=== PATIENT | male | born 1960 | race Caucasian/White ===

== ENCOUNTER → 2023-11-26 11:54 | Outpatient (REF) | payer BC, SELFPAY ==
[2023-11-26 13:42] LABS: NT-proBNP < 20.0 pg/ml
== END ==
LOC: REG 11:54
PROVIDERS: ATTENDING PHYSICIAN Internal Medicine Gastroenterology; FAMILY PHYSICIAN Internal Medicine Cardiovascular Disease
DX: Z01.818 Encounter for other preprocedural examination (principal)
CPT/HCPCS: 36415; 83880

== ENCOUNTER → 2023-12-03 15:17 | Outpatient (REF) | payer BC, SELFPAY ==
[2023-12-03 17:08] LABS: ALT (SGPT) 18 U/L (0-50); AST (SGOT) 23 U/L (17-59); Albumin 4.8 g/dl (3.5-5.0); Alkaline Phosphatase 56 U/L (38-126); Blood Urea Nitrogen 17 mg/dl (9-20); Calcium 9.5 mg/dl (8.4-10.2); Carbon Dioxide 32 mmol/L (22-30); Chloride 99 mmol/L (98-107); Glucose 99 mg/dl (70-99); Sodium 141 mmol/L (135-145); Total Bilirubin 0.5 mg/dl (0.2-1.3); Total Protein 7.9 g/dl (6.3-8.2); eGFR > 60.00
== END ==
LOC: RAD 15:17
PROVIDERS: ATTENDING PHYSICIAN Internal Medicine Gastroenterology; FAMILY PHYSICIAN Internal Medicine Cardiovascular Disease; REFERRING PHYSICIAN Radiology Diagnostic Radiology
DX: R93.3 Abnormal findings on diagnostic imaging of other parts of digestive tract (principal); K85.90 Acute pancreatitis without necrosis or infection, unspecified
CPT/HCPCS: 36415; 74177; 80053; Q9967

== ENCOUNTER 2024-03-16 01:15 | Emergency (ER) | payer BC, SELFPAY ==
[2024-03-16 01:15] VITALS: BMI 26.5
[2024-03-16 01:17] VITALS: BP 130/96
--- NOTE | 2024-03-16 01:45 | ED.SKININJ ---
HPI-Injury
General
Chief Complaint: Skin Surface Trauma
Source: patient
Time Seen by Provider: 03/16/24 01:20
Nursing documentation reviewed up to this point in time: agreed with
History of Present Illness-Injury
Is this injury a work related problem?: No
Is pt an associate of [facility]?: No
Initial Injury comments:
63 y/o M presenting for evaluation of L great toenail injury. Pt notes that he was removing his sock and 'ripped up' his toenail. He endorses pain and bleeding at the time of the injury. Pt reports that he washed the area with soap and water.
Bleeding has since resolved. Pt continues to endorse toenail pain.
Review of Systems
Review of Systems
Allergies reviewed?: Yes
Constitutional: Reports no symptoms
EENT: Reports no symptoms
Respiratory: Reports no symptoms
Cardiac: Reports no symptoms
ABD/GI: Reports no symptoms
: Reports no symptoms
Musculoskeletal: Reports no symptoms
Skin: Reports other (L great toenail bleeding and pain )
Neurological: Reports no symptoms
Endocrine: Reports no symptoms
Hematologic/Lymphatic: Reports no symptoms
Psychiatric: Reports no symptoms
Phy Exam
General Physical Exam
General Presentation: well appearing
General age: appears stated age
General Skin: other (dried blood under L great toenail )
General Habitus: normal
General Mental: alert
General Hydration: appears well hydrated
Cardiovascular Exam
Cardiovascular Exam: regular rate/rhythm
Pulmonary Exam
Pulmonary Exam: lungs clear and no respiratory distress
Skin Exam
Skin Exam: erythema and other (dried blood under L great toenail )
Course
Orders/Labs/Results
Orders:
Orders
03/16/24 01:53
Tetanus/Diphth/Acelpertussis [Adacel] 0.5 ml IM .ONCE ONE
Vital Signs
Initial and Last Documented VS:
Initial Vital Signs
Temp Pulse Resp BP Pulse Ox
98.1 F 80 22 130/96 97
03/16/24 01:17 03/16/24 01:17 03/16/24 01:03/16/24 01:03/16/24 01:17
Last Documented Vital Signs
Temp Pulse Resp BP Pulse Ox
98.1 F 80 22 130/96 97
03/16/24 01:17 03/16/24 01:17 03/16/24 01:03/16/24 01:03/16/24 01:17
MDM/Problems Addressed
Differential Diagnosis Includes:
L great toenail avulsion
MDM/Problems Addressed:
Tetanus/Diphth/Acelpertussis [Adacel] 0.5 ml IM
Dressing applied to toenail
*Critical Care Note
Total Time (30-74mins, 75-104mins- exclusive of procedures): Not Applicable
Update Note
Update Note:
03/16/2024 0209 AM patient resting comfortably. Received tetanus shot.
ED Attending Note
ED Attending Note
Patient seen and examined by attending physician: Yes
I performed the substantive portion of visit, reviewed & personally made and approve the management plan that is documented in note by myself or EDUARDO.: Yes
ED Attending Note:
Pleasant 63-year-old male who presents with left great toenail avulsion. He was taking off his socks when the toenail lifted up. He was bleeding but that has stopped. The toenail is partially avulsed. He denies any other injury. Patient was
seen in conjunction with the PA student. I have reviewed and agree with the history and treatment plan presented. On my independent physical exam, patient is awake, alert, and oriented x3 minimal acute distress. Toenail is stable. There is some
discoloration under the nail. Patient states that he is being treated for a fungal infection under the nail. Patient was seen in conjunction with the PA student. I have reviewed and agree with the history and treatment plan presented. On my
independent physical exam, patient is awake, alert, and oriented x3, no acute distress. No respiratory distress.
Plan: The nail was bandaged down. Patient received a tetanus shot. He will leave the toenail on as a guard for as long as he can.
-
Portions of this chart may have been created with voice recognition software.� Occasional wrong word or��sound alike� substitutions may have occurred due to the inherent limitations of voice recognition software.
Discharge Plan
Departure
Patient Disposition: Home (Routine Discharge)
Date of Disposition: 03/16/24
Time of Disposition: 02:11
Patient with high blood pressure during this ER visit?: Yes
Discharge Problem:
Avulsed toenail
Instructions: Wound Care (DC), Toe Injury (DC), Bruising Under the Nail, BLOOD PRESSURE
Referrals:
[facility] [Outside]
[facility] [Outside]
Activity Restrictions/Additional Instructions:
It was a pleasure meeting you and taking part in your care. We hope for your continued healing and wellness.
Please read discharge instructions in their entirety. However, they are for general education and may not describe your exact diagnosis at discharge. Information on your ER visit and medical conditions were discussed with you along with appropriate
follow up information...
If indicated, please take your medications as instructed and indicated on discharge paperwork.
Please schedule a follow up appointment as directed. Call to schedule an appointment
Please return to the emergency department with ANY change in, persisting, or worsening of symptoms. If any of your symptoms do not improve, or persist, or become more severe within 6-12 hours, please return to the emergency department for further
care.
Please return to the emergency department if you develop a headache, neck pain/stiffness, fever greater than 100.4F, chest pain, shortness of breath, persistent nausea, vomiting, slurred speech, difficulty walking, numbness/tingling, weakness, signs
of infection or any other symptoms that are worrisome to you.
If you have any questions or concerns please do not hesitate to call the Hospital at or E-mail me directly at [email or web address]
Interventions
Interventions:
*Risk Screen - Suicide Last Done: 03/16/24 01:17
*General Assessment Last Done: 03/16/24 02:09
*Neglect/Abuse Screening Last Done: 03/16/24 01:17
ED- Fall Risk Assessment Last Done: 03/16/24 02:46
*ED COVID-19 Vaccine History Last Done: 03/16/24 02:09
*Nursing Disposition Last Done: 03/16/24 02:46
ED-Skin Assessment Last Done: 03/16/24 02:10
Discharge Date and Time
Discharge Date/Time: 03/16/24 02:48
Print Language: IRISH
[2024-03-16] MEDS: ADACEL 0.5 ML IM (02:13)
== END 2024-03-16 02:48 | disposition home or self-care (01) ==
LOC: EMR 01:15
PROVIDERS: EMERGENCY PHYSICIAN Student in an Organized Health Care Education/Training Program; FAMILY PHYSICIAN Internal Medicine Cardiovascular Disease
DX: S91.202A Unspecified open wound of left great toe with damage to nail, initial encounter (principal); X58.XXXA Exposure to other specified factors, initial encounter; Z23 Encounter for immunization
CPT/HCPCS: 99282; 90471; 90715

== ENCOUNTER 2024-09-21 03:19 | Emergency (ER) | payer BC, SELFPAY ==
[2024-09-21 03:20] VITALS: BMI 26.4
[2024-09-21 03:25] VITALS: BP 144/84
[2024-09-21 04:09] VITALS: BP 139/85
[2024-09-21 04:40] LABS: % Basophils 0.2 % (0-2); % Immature Granulocytes 0.3 % (0-0.5); % Lymphocytes 10.6 % (20.5-51.1); % Monocytes 2.4 % (1.7-9.3); % Neutrophils 86.5 % (42.2-75.2); Absolute Lymphocytes 1.1 10^3/uL (1.2-3.4); Absolute Monocytes 0.2 10^3/uL (0.1-0.6); Absolute Neutrophils 8.7 10^3/uL (1.4-6.5); Hematocrit 48.3 % (39.0-52.0); Hemoglobin 15.7 g/dL (13.0-18.0); Mean Corp Hgb Conc. 32.5 g/dL (33.0-37.0); Mean Corpuscular Volume 92.2 fL (80.0-94.0); Mean Platelet Volume 9.4 fL (7.4-10.4); Nucleated Red Blood Cells % 0 % (-); Platelet Count 224 10^3/uL (130-400); Red Blood Cell Count 5.24 10^6/uL (4.70-6.10); Red Cell Dist. Width 13.3 % (11.5-14.5)
[2024-09-21 04:52] LABS: APTT 29.4 Sec (23.4-35.0); INR 1.02; PT 13.9 Sec (11.4-14.6)
[2024-09-21 05:09] LABS: ALT (SGPT) 26 U/L (0-50); AST (SGOT) 26 U/L (17-59); Albumin 4.8 g/dl (3.5-5.0); Alkaline Phosphatase 55 U/L (38-126); Blood Urea Nitrogen 22 mg/dl (9-20); Calcium 9.5 mg/dl (8.4-10.2); Carbon Dioxide 30 mmol/L (22-30); Chloride 99 mmol/L (98-107); Estimated Creatinine Clearance 84 ml/min; Glucose 117 mg/dl (70-99); Lipase 55 U/L (23-300); Potassium 4.5 mmol/L (3.5-5.1); Sodium 139 mmol/L (135-145); Total Bilirubin 0.7 mg/dl (0.2-1.3); Total Protein 7.8 g/dl (6.3-8.2); eGFR > 60.00
[2024-09-21 05:48] VITALS: BP 146/87
[2024-09-21 06:00] VITALS: BP 134/79
[2024-09-21 06:20] LABS: Urine Albumin Trace (Neg - Trace); Urine Bilirubin Negative (Negative); Urine Character Clear (Clear); Urine Color Yellow; Urine Glucose Negative (Negative); Urine Ketone 2+ (Negative); Urine Leukocyte Negative (Negative); Urine Nitrite Negative (Negative); Urine Occult Blood Negative (Negative); Urine Specific Gravity 1.025 (<1.030); Urine Urobilinogen Negative (Neg - 1+)
--- NOTE | 2024-09-21 06:37 | ED.GENMED ---
History of Present Illness
General
Chief Complaint: Abdominal Symptoms
Source: patient
Exam Limitations: none
Time Seen by Provider: 09/21/24 04:21
Nursing documentation reviewed up to this point in time: agreed with
History of Present Illness
History of Present Illness:
Pleasant 64-year-old male presents to the emergency department with nausea vomiting. He also had upper epigastric pain. Patient denies any diarrhea. Denies any hemoptysis or hematemesis. Patient stated that he started taking acyclovir for
shingles over 1 week ago and was concerned that his pain could be related to the medication.. Denies fever, chills, diarrhea, chest pain, or shortness of breath.
Phy Exam
General Physical Exam
General Presentation: well appearing and no apparent distress
General Skin: warm and dry
General Habitus: normal
General Mental: alert
General Hydration: appears well hydrated
ENT Exam
ENT Exam: EOMI, pharynx normal, neck supple and normocephalic
Eye Exam
Eye Exam: PERRL, cornea clear and conjunctiva normal
Cardiovascular Exam
Cardiovascular Exam: regular rate/rhythm, no edema, no murmur and normal peripheral pulses
Pulmonary Exam
Pulmonary Exam: lungs clear, no respiratory distress, no rales, no crackles, no rhonchi, no stridor, no wheezing and no cough
Gastrointestinal Exam
Gastrointestinal Exam: normal bowel sounds, non tender, soft, no organomegaly, no pulsatile mass and non distended
Palpation: generalized: Mild tenderness
Neurological Exam
Neurological Exam: alert, oriented x3, no motor deficits and speech normal
Musculoskeletal Exam
Musculoskeletal Exam: full ROM and no edema
Skin Exam
Skin Exam: normal color, warm/dry, no rash and no petechia
Psychiatric Exam
Psychiatric Exam: normal mood/affect
Course
Orders/Labs/Results
Orders:
Orders
09/21/24 04:23
Complete Blood Count/With Diff Urgent
Comprehensive Metabolic Panel Urgent
Lipase Urgent
PTT Urgent
Prothrombin Time Urgent
09/21/24 06:09
Urinalysis Reflex To Culture Urgent
Date Specimen was Collected: 09/21/24
Time Specimen was Collected: 06:08
09/21/24 06:39
Electrocardiogram (*1) Urgent
Reason for Study: Abdominal Pain
09/21/24 06:40
EKG- Treatment ONCE
Abnormal Lab Results
09/21/24 09/21/24
04:23 06:09
MCHC 32.5 L g/dL
(33.0-37.0)
Absolute Neuts (auto) 8.7 H 10^3/uL
(1.4-6.5)
Absolute Lymphs (auto) 1.1 L 10^3/uL
(1.2-3.4)
Neutrophils % 86.5 H %
(42.2-75.2)
Lymphocytes % 10.6 L %
(20.5-51.1)
BUN 22 H mg/dl
(9-20)
Glucose 117 H mg/dl
(70-99)
Urine Ketones 2+ A
(Negative)
09/21/24 04:23
09/21/24 04:23
Vital Signs
Initial and Last Documented VS:
Initial Vital Signs
Temp Pulse Resp BP Pulse Ox
97.8 F 82 22 144/84 99
09/21/24 03:25 09/21/24 03:25 09/21/24 03:25 09/21/24 03:25 09/21/24 03:25
Last Documented Vital Signs
Temp Pulse Resp BP Pulse Ox
97.8 F 82 22 138/79 97
09/21/24 03:25 09/21/24 03:25 09/21/24 03:25 09/21/24 07:00 09/21/24 07:00
*Critical Care Note
Total Time (30-74mins, 75-104mins- exclusive of procedures): Not Applicable
Update Note
Update Note:
Patient resting comfortably, no acute distress.
ED Attending Note
-
Portions of this chart may have been created with voice recognition software.� Occasional wrong word or��sound alike� substitutions may have occurred due to the inherent limitations of voice recognition software.
Discharge Plan
Departure
Patient Disposition: Home (Routine Discharge)
Date of Disposition: 09/21/24
Time of Disposition: 07:33
Patient with high blood pressure during this ER visit?: Yes
Condition: Good
Discharge Problem:
Nausea & vomiting
Instructions: [place] Diet, Nausea and Vomiting, Adult (DC), BLOOD PRESSURE
Prescriptions:
New
ondansetron 4 mg tablet,disintegrating
4 mg PO Q8H 5 Days Qty: 15 0RF
Referrals:
[facility] [Provider Group]
[facility] [Outside]
[facility] [Outside]
UNKNOWN - PT NOT,[facility]VIEWE [Family Provider] -
Activity Restrictions/Additional Instructions:
It was a pleasure meeting you and taking part in your care. We hope for your continued healing and wellness.
Please read discharge instructions in their entirety. However, they are for general education and may not describe your exact diagnosis at discharge. Information on your ER visit and medical conditions were discussed with you along with appropriate
follow up information...
If indicated, please take your medications as instructed and indicated on discharge paperwork.
Please schedule a follow up appointment as directed. Call to schedule an appointment
Please return to the emergency department with ANY change in, persisting, or worsening of symptoms. If any of your symptoms do not improve, or persist, or become more severe within 6-12 hours, please return to the emergency department for further
care.
Please return to the emergency department if you develop a headache, neck pain/stiffness, fever greater than 100.4F, chest pain, shortness of breath, persistent nausea, vomiting, slurred speech, difficulty walking, numbness/tingling, weakness, signs
of infection or any other symptoms that are worrisome to you.
If you have any questions or concerns please do not hesitate to call the Hospital at or E-mail me directly at [email or web address]
Interventions
Interventions:
*Risk Screen - Suicide Last Done: 09/21/24 03:25
*General Assessment Last Done: 09/21/24 04:10
*Neglect/Abuse Screening Last Done: 09/21/24 03:25
ED- Fall Risk Assessment Last Done: 09/21/24 04:12
*ED COVID-19 Vaccine History Last Done: 09/21/24 04:10
*Nursing Disposition Last Done: 09/21/24 07:44
FH-Jsvxeh-Pjcufmztrp Assessment Last Done: 09/21/24 04:11
Discharge Date and Time
Discharge Date/Time: 09/21/24 07:58
Print Language: GREEK
[2024-09-21 07:00] VITALS: BP 138/79
== END 2024-09-21 07:58 | disposition home or self-care (01) ==
LOC: EMR 03:19
PROVIDERS: EMERGENCY PHYSICIAN Student in an Organized Health Care Education/Training Program
DX: R11.2 Nausea with vomiting, unspecified (principal); R10.13 Epigastric pain; B02.9 Zoster without complications; Z88.2 Allergy status to sulfonamides; Z91.018 Allergy to other foods
CPT/HCPCS: 99283; 80053; 81003; 83690; 85025; 85610; 85730; 93005

== ENCOUNTER → 2025-09-20 08:44 | Outpatient (REF) | payer MEDICARE, OTHER, SELFPAY | LOC: RAD 08:44 | PROVIDERS: ATTENDING PHYSICIAN Internal Medicine; FAMILY PHYSICIAN Internal Medicine Cardiovascular Disease | DX: I83.813 Varicose veins of bilateral lower extremities with pain (principal) | CPT/HCPCS: 93970 ==